=== PATIENT | female | born 1955 | race Caucasian/White ===

== ENCOUNTER → 2017-09-29 | Outpatient (CLI) | payer BC ==
[2017-09-29 11:45] LABS: Basophils % (A) 1 %; Eosinophils # (A) 0.1 k/uL (0-0.7); Eosinophils % (A) 4 %; HCT 44.4 % (34.0-46.0); HGB 14.5 gm/dL (11.4-16.0); Lymphocytes % (A) 30 %; MCHC 32.5 g/dL (31.0-37.0); MCV 85.9 fL (80.0-100.0); Mean Platelet Volume 7.4; Monocytes # (A) 0.3 k/uL (0-1.0); Monocytes % (A) 9 %; Neutrophils # (A) 1.8 k/uL (1.3-7.7); Neutrophils % (A) 53 %; Platelet Count 312 k/uL (150-450); RBC 5.17 m/uL (3.80-5.40); RDW 13.2 % (11.5-15.5); WBC 3.4 k/uL (3.8-10.6)
[2017-09-29 13:19] LABS: Erythrocyte Sedimentation Rate 8 mm/hr (0-20)
[2017-09-29 16:38] LABS: Rheumatoid Factor 15 IU/mL (0-15)
== END | disposition home or self-care (01) ==
LOC: LABWHC1 10:46
PROVIDERS: ATTEND Otolaryngology
DX: K13.5 Oral submucous fibrosis (principal); R53.83 Other fatigue
CPT/HCPCS: 36415; 85025; 85652; 86038; 86235; 86431

== ENCOUNTER → 2021-03-12 | Outpatient (CLI) | payer MEDICARE ==
--- NOTE | 2021-03-13 13:31 | BD ---
EXAMINATION TYPE: Axial Bone Density DATE OF EXAM: 03/12/2021 COMPARISON: NONE CLINICAL HISTORY: 66 YR OLD FEMALE....ICD-10 CODE: N95.1 POST GIACOMO Height: 62 Weight: 107 FRAX RISK QUESTIONS: History of Fracture in Adulthood: YES RISK FACTORS HISTORY OF: YES, RT WRIST, LT ANKLE FRACTURES AN ADULT History of Wrist Fracture: RT WRIST Postmenopausal woman: YES, AT AGE 54 YRS OLD Hyperparathyroidism: NO Adrenal Insufficiency: NO MEDICATIONS: Additional Medications: CHOLESTEROL MEDS, AND MEDICATION FOR SKIN Additional History: CHOLESTEROL, EXAM MEASUREMENTS: Bone mineral densitometry was performed using the [employer] System. Bone mineral density as measured about the Lumbar spine is: ----- L1-L4(G/cm2): 1.018 T Score Values are as follows: ----- L1: -1.6 ----- L2: -2.0 ----- L3: -1.5 ----- L4: -0.6 ----- L1-L4: -1.4 Bone mineral density FIRST BONE DENSITY SCAN......BASELINE STUDY Bone mineral density about the R hip (g/cm2): 0.764 Bone mineral density about the L hip (g/cm2): 0.784 T Score values are as follows: -----R Neck: -1.5 -----L Neck: -2.0 -----R Total: -1.9 -----L Total: -1.9 Bone mineral density BASELINE STUDY... FRAX%s: THERE IS A 15.5% CHANCE FOR A MAJOR OSTEOPOROTIC FX AND A 2.7% FOR HIP......PROBABILITY FO R FX IN 10 YRS TIME IMPRESSION: Osteopenia of the lumbar spine and bilateral femora. NOTE: T-SCORE=SD OF THE YOUNG ADULT MEAN.
--- NOTE | 2021-03-13 14:59 | MM ---
Reason for exam: screening (asymptomatic). History: Patient is postmenopausal. Took hormonal contraceptives for 15 years. Physical Findings: A clinical breast exam by your physician is recommended on an annual basis and results should be correlated with mammographic findings. MG Screening Mammo w CAD Bilateral CC and MLO view(s) were taken. No prior studies available for comparison. The breast tissue is heterogeneously dense. This may lower the sensitivity of mammography. Bilateral asymmetric densities for which spot compression views are recommended, 12 o'clock middle depth right breast, central posterior left CC view and medial anterior left CC view. ASSESSMENT: Incomplete: need additional imaging evaluation, BI-RAD 0 RECOMMENDATION: Special view mammogram of both breasts. (3D) If lesion persists on supplemental views, image directed ultrasound is recommended. [facility] will attempt to contact patient to return for supplemental views and ultrasound if indicated.
== END | disposition home or self-care (01) ==
LOC: RADMAMWWP 15:54
PROVIDERS: ATTEND Family Medicine
DX: Z12.31 Encounter for screening mammogram for malignant neoplasm of breast (principal); Z78.0 Asymptomatic menopausal state; M85.89 Other specified disorders of bone density and structure, multiple sites
CPT/HCPCS: 77067; 77080